=== PATIENT | female | born 1995 | race Caucasian/White ===

== ENCOUNTER → 2023-05-27 | Emergency (ER) | payer BC ==
[~2023-05-27] MED LIST: ACETAMINOPHEN 500 MG TAB ONE; AZITHROMYCIN 250 MG TAB ONE; IBUPROFEN 400 MG TAB ONE
[2023-05-27 03:14] LABS: SARS-CoV-2 Antigen Rapid Res Negative (Negative)
--- NOTE | 2023-05-27 05:06 | ER ---
Nurse's Notes [facility] Name: Liberty Lynn Age: 28 yrs Sex: Female : 1995 Arrival Date: 05/27/2023 Time: 02:04 Bed 10 Private MD: Diagnosis: Acute pharyngitis, unspecified;Fever, unspecified;Acute febrile illness Presentation: 05/27 02:35 Chief complaint: Patient states: "I think I have the flu". Coronavirus screen: At this as6 time, the client does not indicate any symptoms associated with coronavirus-19. Ebola Screen: No symptoms or risks identified at this time. Initial Sepsis Screen: Does the patient meet any 2 criteria? No. Patient's initial sepsis screen is negative. Does the patient have a suspected source of infection? No. Patient's initial sepsis screen is negative. Risk Assessment: Do you want to hurt yourself or someone else? Patient reports no desire to harm self or others. Onset of symptoms was May 26, 2023. 02:35 Method Of Arrival: Ambulatory as6 02:35 Acuity: JANESSA 4 as6 Triage Assessment: 02:40 General: Appears in no apparent distress. Behavior is calm, cooperative. General: as6 Reports chills for fever for feeling ill for fatigue for. Pain: Complains of pain in generalized Quality of pain is described as aching. EENT: Reports nasal congestion. EENT: Reports pain sore throat. Respiratory: Reports cough that is. 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 - Social history:: Smoking status: Patient denies any tobacco usage or history of. - Family history:: not pertinent. Screenin:18 [facility] ED Fall Risk Assessment (Adult) Score/Fall Risk Level 0 - 2 = Low Risk. Abuse as6 screen: Denies threats or abuse. Denies injuries from another. Nutritional screening: No deficits noted. Tuberculosis screening: No symptoms or risk factors identified. Vital Signs: 02:35 BP 133 / 88; Pulse 109; Resp 18 S; Temp 100(O); Pulse Ox 100% on R/A; Weight 86.18 kg as6 (R); Height 5 ft. 6 in. (R); Pain 3/10; 05:12 Temp 98.6(O); as6 02:35 Body Mass Index 30.67 (86.18 kg, 167.64 cm) as6 02:35 Pain Scale: Adult as6 ED Course: 02:08 Patient arrived in ED. jj6 02:37 Triage completed. as6 02:38 Arm band placed on. as6 02:45 Meet Bhat, DIA is Primary Nurse. as6 02:55 Odell Prasad MD is Attending Physician. sp4 04:18 Bed in low position. Call light in reach. as6 05:13 Provided Education on: follow up. as6 05:13 No provider procedures requiring assistance completed. Patient did not have IV access as6 during this emergency room visit. Administered Medications: 02:45 Drug: Acetaminophen PO 1000 mg PO once Route: PO; as6 05:14 Follow up: Response: No adverse reaction as6 03:29 Drug: Ibuprofen PO 400 mg PO once Route: PO; as6 05:14 Follow up: Response: No adverse reaction as6 05:12 Drug: AZITHromycin PO 500 mg PO once Route: PO; as6 05:13 Follow up: Response: No adverse reaction as6 Medication: 04:18 VIS not applicable for this client. as6 Outcome: 05:06 Discharge ordered by . sp4 05:13 Discharged to home ambulatory, as6 05:13 Condition: stable 05:14 Discharge instructions given to patient, Instructed on discharge instructions, follow as6 up and referral plans. medication usage, Demonstrated understanding of instructions, follow-up care, medications, Prescriptions given X 1, 05:14 Patient left the ED. as6 Signatures: DominiqueRonna 6 Meet Bhat, DIA ALVARES as6 Odell Prasad MD MD sp4 Corrections: (The following items were deleted from the chart) 02:38 02:37 PSHx: None; as6 as6
--- NOTE | 2023-05-27 05:06 | EDPHYS ---
Physician Documentation [facility] Name: Liberty Lynn Age: 28 yrs Sex: Female : 1995 Arrival Date: 05/27/2023 Time: 02:04 Bed 10 Private MD: ED Physician Odell Prasad HPI: 05/27 02:55 This 28 yrs old Female presents to ER via Ambulatory with complaints of sp4 Cough, Congestion, Sore Throat, General Weakness, Fever. 02:59 28-year-old female presents with acute onset of cough congestion sore throat sp4 generalized weakness and subjective fever at home starting yesterday. Denied vomiting . 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 - Social history:: Smoking status: Patient denies any tobacco usage or history of. - Family history:: not pertinent. ROS: 02:59 Constitutional: Positive subjective fever, positive cough, positive congestion, sp4 positive sore throat, positive generalized fever and weakness 02:59 All other systems are negative, Exam: 02:59 Constitutional: This is a well developed, well nourished patient who is awake, alert, sp4 no acute distress Head/Face: Normocephalic, atraumatic. Eyes: Pupils equal round and reactive to light, extra-ocular motions intact. Lids and lashes normal. Conjunctiva and sclera are not injected. Cornea within normal limits. Periorbital areas with no swelling, redness, or edema. ENT: Nares patent. No nasal discharge, no septal abnormalities noted. Tympanic membranes are normal and external auditory canals are clear. Oropharynx with no redness, swelling, or masses, exudates, or evidence of obstruction, uvula midline. Mucous membranes moist. Neck: Trachea midline, no thyromegaly or masses palpated, and no cervical lymphadenopathy. Supple, full range of motion without nuchal rigidity, or vertebral point tenderness. Chest/axilla: Normal chest wall appearance and motion. Nontender with no deformity. No lesions are appreciated. Cardiovascular: Regular rate and rhythm with a normal S1 and S2. No gallops, murmurs, or rubs. Normal PMI, no JVD. No pulse deficits. Respiratory: Lungs have equal breath sounds bilaterally, clear to auscultation and percussion. No rales, rhonchi or wheezes noted. No increased work of breathing, no retractions or nasal flaring. Abdomen/GI: Soft, non-tender, with normal bowel sounds. No distension or tympany. No guarding or rebound. No evidence of tenderness throughout. Back: No spinal tenderness. No costovertebral tenderness. Skin: Warm, dry with normal turgor. Normal color with no rashes, no lesions, and no evidence of cellulitis. MS/ Extremity: Pulses equal, no cyanosis. Neurovascular intact. Full, normal range of motion. Neuro: Awake and alert, GCS 15, oriented to person, place, time, and situation. Cranial nerves II-XII grossly intact. Motor strength 5/5 in all extremities. Sensory grossly intact. Psych: Awake, alert, with orientation to person, place and time. Behavior, mood, and affect are within normal limits Vital Signs: 02:35 BP 133 / 88; Pulse 109; Resp 18 S; Temp 100(O); Pulse Ox 100% on R/A; Weight 86.18 kg as6 (R); Height 5 ft. 6 in. (R); Pain 3/10; 05:12 Temp 98.6(O); as6 02:35 Body Mass Index 30.67 (86.18 kg, 167.64 cm) as6 02:35 Pain Scale: Adult as6 MDM: 03:01 Differential Diagnosis: Obstructed Airway Bronchitis Influenza Upper Respiratory sp4 Infection Sinusitis. Data reviewed: vital signs, nurses notes. 03:07 Patient medically screened. sp4 05:05 Consideration of Admission/Observation Escalation of care including sp4 admission/observation considered. ED course: COVID negative, influenza negative, and also strep. Will cover with p.o. Zithromax for acute pharyngitis. Also advised Tylenol ibuprofen at the same time every 6 hours , stable for discharge home, and has Nexplanon in the left arm and test is not indicated. . 05/27 02:39 Order name: Strep; Complete Time: 05:01 as6 05/27 02:39 Order name: SARS RAPID; Complete Time: 03:37 05/27 02:39 Order name: Influenza Screen (a \T\ B); Complete Time: 05:01 05/27 03:39 Order name: Throat Culture EDMS Administered Medications: 02:45 Drug: Acetaminophen PO 1000 mg PO once Route: PO; as6 05:14 Follow up: Response: No adverse reaction as6 03:29 Drug: Ibuprofen PO 400 mg PO once Route: PO; as6 05:14 Follow up: Response: No adverse reaction as6 05:12 Drug: AZITHromycin PO 500 mg PO once Route: PO; as6 05:13 Follow up: Response: No adverse reaction as6 Disposition Summary: 05/27/23 05:06 Discharge Ordered Problem: new sp4 Symptoms: have improved sp4 Condition: Stable sp4 Diagnosis - Acute pharyngitis, unspecified sp4 - Fever, unspecified sp4 - Acute febrile illness sp4 Followup: sp4 - With: Private Physician - When: 5 - 6 days - Reason: Recheck today's complaints Discharge Instructions: - Discharge Summary Sheet sp4 - Pharyngitis sp4 Forms: - Patient Portal Instructions sp4 Prescriptions: - Zithromax Z-Asaf 250 mg Oral Tablet - take 1 tablet ORAL route as directed for 5 days Day 1 - take two (2) tablets sp4 one time. Day 2, 3, 4 , 5 take one (1) tablet once daily.; 6 tablet; Refills: 0, Product Selection Permitted Signatures: [facility] Meet Cheung RN RN as6 Odell Prasad MD MD sp4 Corrections: (The following items were deleted from the chart) 02:38 02:37 PSHx: None; as6 as6
[2023-05-27 06:08] VITALS: BP 133/88; TEMP 98.6; O2SAT 100
== END ==
LOC: ER 02:04
DX: J02.9 Acute pharyngitis, unspecified (principal); R50.9 Fever, unspecified; R05.9 Cough, unspecified; Z11.52 Encounter for screening for COVID-19
CPT/HCPCS: 36415; 87070; 87081; 87804; 87811; 99283